=== PATIENT | male | born 1950 ===

== ENCOUNTER 2017-05-17 08:10 | Day surgery (SDC) | payer MEDICARE, OTHER ==
[2017-05-17] MEDS ORDERED: Propofol 10 mg/ml Inj (20 ML) ONE ×3 (10:48→11:30)
[2017-05-17] MEDS ORDERED: Lactated Ringer's 1,000 ML IV ONE (10:48)
[2017-05-17 10:56] VITALS: O2SAT 100
[2017-05-17 12:01] VITALS: TEMP 96.8
[2017-05-17 12:45] VITALS: BP 109/70; PULSE 68; RESP 15
== END 2017-05-17 12:25 | disposition home or self-care (01) ==
LOC: C.ENDO 08:10
PROVIDERS: ATTEND Internal Medicine Gastroenterology
DX: D50.9 Iron deficiency anemia, unspecified (principal); D12.2 Benign neoplasm of ascending colon; D12.7 Benign neoplasm of rectosigmoid junction; K64.8 Other hemorrhoids
CPT/HCPCS: 45380; 82948; 88305; J2704; J7120